=== PATIENT | female | born 1995 | race Caucasian/White ===

== ENCOUNTER 2019-08-17 18:04 | Emergency (ER) | payer MEDICAID, SELFPAY ==
[2019-08-17 18:05] VITALS: BP 107/88; PULSE 112; RESP 17; TEMP 36.1; O2SAT 99; BMI 41.3
--- NOTE | 2019-08-17 18:20 | RAD_ITS ---
STUDY: X-RAY - RIGHT KNEE REASON FOR EXAM: Female, 24 years old. Fall. TECHNIQUE: 4 view(s) of the knee. COMPARISON: None. FINDINGS: Normal visualized distal femur. Normal visualized proximal tibia and fibula. Normal proximal tibiofibular articulation. There is no demonstrated fracture. Normal medial femorotibial compartment. Normal lateral femorotibial compartment. Normal patellofemoral articulation. There is no demonstrated joint effusion. The soft tissue structures are unremarkable. RAD/Knee 4 or More Views IMPRESSION: Normal x-ray examination of the knee. Electronically Signed: Angel Tompkins MD at 18:50 EDT , Service support ,
--- NOTE | 2019-08-17 19:10 | ED.VISSUMM ---
- ER Visit Summary Date of Service: 08/17/19 Chief Complaint: [Fall with injury to right knee] History of Present Illness: The patient is a 24 F [presents to the emergency department stating that she slipped and fell onto her right knee around 1 PM today. Patient having pain with ambulation now. Patient is not sure if she twisted the knee first when she slipped. Patient states she has pain when she tries flexes the knee. Patient denies any other injuries. Patient has no medical history otherwise.] Physical Examination: [Right knee-patient has diffuse tenderness about the medial lateral joint lines. Patient has pain with flexion of the knee. Appears to be ligamentously intact with normal varus and valgus stress. She does not tolerate anterior and posterior drawer test however. She is neurovascular intact distally. Is deformity. No effusion noted.] Test Results: [X-rays of the right knee obtained were normal.] Emergency Department Course and Treatment: [] Patient was given crutches and knee immobilizer Treatment Plan: [Given a prescription for naproxen and referral to orthopedics] Disposition: [Discharged home in stable condition] Impression: [Knee sprain/effusion-possible internal derangement] This note was generated with [employer] dictation software. It may contain incorrect words, spelling, and punctuation that were not noted in review of the chart prior to signing ED Disposition - Plan for ED Patient: Referrals: Larry Anne MD [Primary Care Provider] -
--- NOTE | 2019-08-17 19:12 | ED.DEP ---
ED Disposition - Plan for ED Patient: Instructions: KNEE PAIN, Meniscus Injury (Possible) Prescriptions: Naproxen [Naprosyn] 500 mg PO BID PRN #20 tab Prescription Printed Referrals: Larry Anne MD [Primary Care Provider] - Bipin Correa MD [STAFF PHYSICIAN] - 5-7 Days
[2019-08-17 20:05] VITALS: PULSE 80; RESP 12
== END 2019-08-17 20:07 | disposition home or self-care (01) ==
LOC: ED 18:45
PROVIDERS: Emergency Provider Emergency Medicine; Family Provider Family Medicine; PCP Family Medicine
DX: S83.91XA Sprain of unspecified site of right knee, initial encounter (principal); W01.0XXA Fall on same level from slipping, tripping and stumbling without subsequent striking against object, initial encounter; Y93.9 Activity, unspecified; Y92.9 Unspecified place or not applicable
CPT/HCPCS: 73564; 99284

== ENCOUNTER 2020-10-22 05:55 | Emergency (ER) | payer MEDICAID, SELFPAY ==
[2020-01-27 08:36] VITALS: BMI 41.3
[2020-10-22 05:56] VITALS: BP 150/88; PULSE 96; RESP 18; TEMP 36.3; O2SAT 98; BMI 43.5
--- NOTE | 2020-10-22 06:06 | ED.VIS.GEN ---
History of Present Illness Chief Complaint: Anxiety Informant: Patient Narrative: she restarted Zoloft yesterday evening and believes she is having some side effects. She feels jittery all over. She is having some tingling in her left hand. She had this in the past several months ago with similar symptoms while taking Zoloft and levothyroxine. She was weaned off of each of them and the symptoms resolved. They are back again for the second time after restarting her medication. She wanted to make sure things were okay. Denies any other symptoms. No weakness in the hand. No slurred speech or stroke symptoms otherwise. Past Medical History - Allergies and Home Meds Allergies/Adverse Reactions: Allergies amoxicillin [Amoxicillin] Allergy (Verified 10/22/20 06:02) Swelling Primary Care Physician: Larry Anne MD [Primary Care Provider] - Prior records reviewed: Yes Past Medical History: - - Anxiety Surgical History: - - Reviewed Smoking Status: Never smoker Alcohol: None Drugs: None Review of Systems General: Denies: Chills, Fever, Sweats Eyes: Denies: Visual changes - bilaterally, Diplopia ENT: Denies: Rhinorrhea, Sore throat Cardiovascular: Denies: Chest pain, Palpitations Respiratory: Denies: Dyspnea, Cough, Dyspnea on exertion Gastrointestinal: Denies: Abdominal pain, Nausea, Vomiting, Diarrhea, Melena, Hematochezia Genitourinary: Denies: Dysuria, Hematuria, Frequency Musculoskeletal: Denies: Back pain, Extremity Pain Skin: Denies: Rash, Wounds Neurological: Reports: Numbness - See HPI. Denies: Headache, Weakness Psych: Reports: Anxiety Physical Exam Vital Signs/Narrative: Vital Signs Temp Pulse Resp BP Pulse Ox 10/22/20 05:56 97.4 F L 96 18 150/88 H 98 General: Well nourished, Well developed, No Acute Distress Head: Normocephalic, Atraumatic Eyes: Perrl, EOMI ENT: Moist mucous membranes, No rhinorrhea Neck: Supple, Nontender Cardiovascular: Regular rate, Regular rhythm, No murmurs Respiratory: No distress, CTA bilaterally, Chest nontender Abdomen: Soft, Nontender, Nondistended, Normal bowel sounds Back: Nontender, Normal Inspection Extremities: Nontender, No edema Skin: Normal color, No rash Neurological: Alert, Oriented x3, Cranial nerves II-XII grossly intact, Normal Strength, Normal Sensation Psychological: Normal affect, Normal Mood Diagnostic/Tx/Re-eval - Medical Decision Making Patient has normal sensation left hand. Normal strength. NIH stroke scale 0. She is jittery feeling throughout. I suspect she is having side effect again from her Zoloft which will be the second time. I do not feel she needs work or imaging or has an emergent cause. She will stop this medication follow-up with her family doctor. She does not want a thing for her symptoms and should metabolize the medication ED Disposition - Plan for ED Patient: Disposition: Home or Assisted Living Diagnosis: Medication side effect Instructions: ED Anxiety Reaction Referrals: Larry Anne MD [Primary Care Provider] -
[2020-10-22 06:21] VITALS: BP 150/88; PULSE 96; RESP 16; O2SAT 98
== END 2020-10-22 06:22 | disposition home or self-care (01) ==
LOC: ED 06:13
PROVIDERS: Emergency Provider Emergency Medicine; PCP Family Medicine
DX: R20.2 Paresthesia of skin (principal); T43.225A Adverse effect of selective serotonin reuptake inhibitors, initial encounter; Y92.9 Unspecified place or not applicable; F41.9 Anxiety disorder, unspecified; Z79.899 Other long term (current) drug therapy
CPT/HCPCS: 99282

== ENCOUNTER 2021-02-25 07:27 | Emergency (ER) | payer MEDICAID, SELFPAY ==
[2021-02-25 07:29] VITALS: BP 128/66; PULSE 79; RESP 14; TEMP 36.3; O2SAT 99; BMI 42.9
--- NOTE | 2021-02-25 07:38 | EKG12_ITS ---
Test Reason : Blood Pressure : / mmHG Vent. Rate : 071 BPM Atrial Rate : 071 BPM P-R Int : 144 ms QRS Dur : 084 ms QT Int : 396 ms P-R-T Axes : 034 -05 016 degrees QTc Int : 430 ms Normal sinus rhythm Normal ECG Confirmed by JULIO DUCKWORTH, ALO ([id number]), television news video editor JAY DURHAM ([id number]) on 02/28/2021 9:38:22 AM Referred By: Confirmed By:ANTWON KIM MD
--- NOTE | 2021-02-25 07:39 | ED.VISSUMM ---
- ER Visit Summary Date of Service: 02/25/21 Chief Complaint: Dizziness History of Present Illness: The patient is a 25 F presenting with dizziness. Patient states she woke up this morning and sat up in bed and had a spinning sensation. States when she tried to walk she felt unsteady. She denies lightheadedness or syncope. Denies nausea or vomiting. Denies headache. Denies numbness or weakness. Denies fever or recent illness. She states the symptoms only come on when she changes positions or turns her head. Denies recent trauma. Denies other complaints. Physical Examination: Vitals are stable. Patient is afebrile. Alert no acute distress. HEENT exam is unremarkable. Neck is supple. Lungs are clear and equal bilaterally. Heart is regular rate and rhythm. Abdomen is soft nontender nondistended. Extremities are unremarkable. Skin is warm and dry. No focal neurologic deficit. Normal strength and sensation Remainder of exam is unremarkable. Emergency Department Course and Treatment: Patient was given IV fluids, Valium. CBC, chemistries unremarkable. hCG negative. EKG sinus rhythm rate of 71 with no acute ischemic changes. On reevaluation patient has improvement of her symptoms. She was given prescription for meclizine. Advised to follow-up with her primary care physician. Advised return to the ED for worsening complaints. Disposition: Discharge home Impression: Benign positional vertigo This note was generated with [employer] dictation software. It may contain incorrect words, spelling, and punctuation that were not noted in review of the chart prior to signing ED Disposition - Plan for ED Patient: Instructions: ED BPV Vertigo Prescriptions: Meclizine HCl [Antivert] 25 mg PO TID PRN PRN #20 tablet PRN Reason: Dizziness Prescription Printed Referrals: Larry Anne MD [Primary Care Provider] -
[2021-02-25] MEDS: 0.9% Normal Saline 1,000 ML 1000 ML IV (07:44)
[2021-02-25 08:03] LABS: Absolute Lymphocyte Count 2.07 X10^3/uL (0.83-4.51); Absolute Neutrophil Count 4.2 X10^3/uL (2.0-7.7); Basophil# 0.04 X10^3/uL; Basophil% 0.6 % (0-1); Eosinophil# 0.17 X10^3/uL; Eosinophils% 2.4 % (0-5); Hematocrit 42.8 % (37-47); Hemoglobin 13.7 g/dL (12.0-15.0); Lymphocyte # 2.07 X10^3/ul (0.83-4.51); Lymphocyte % 29.8 % (19-41); Mean Corpuscular Volume 81.4 fL (81-99); Mean Platelet Vol. 9.8 fl (6.2-12.0); Monocyte# 0.44 X10^3/uL; Monocyte% 6.3 % (0-10); NRBC Flagged by Analyzer 0 % (0-5); Neutrophil % 60.6 % (47-70); Platelet Count 324 K/mm3 (150-450); RBC Distribution Width CV 13.9 % (11.6-14.6); RBC Distribution Width SD 40.3 fl (35.1-43.9); Red Blood Count 5.26 M/mm3 (4.2-5.4); White Blood Count 6.9 K/mm3 (4.4-11.0)
[2021-02-25 08:07] LABS: Anion Gap 6 (5-15); BUN 12 mg/dL (7-18); BUN/Creat Ratio 14.4 RATIO (10-20); Calcium,Total 9.4 mg/dL (8.5-10.1); Chloride 111 mmol/L (98-107); Creatinine, Serum 0.83 mg/dL (0.55-1.02); EST Glomerular Filtration Rate 87 mL/min (>60); Est Glom Filt Rate - Afr Amer 105 mL/min (>60); Estimated Creatinine Clearance 99.01 ml/min; Glucose 88 mg/dL (74-106); Potassium 4.3 mmol/L (3.5-5.1); Sodium Level 141 mmol/L (136-145)
[2021-02-25 08:19] LABS: Internal QC Validated? YES +Cl - CLEAR BKGD; Pregnancy, Serum, hCG Quali. NEGATIVE Negative
--- NOTE | 2021-02-25 08:45 | ED.DEP ---
ED Disposition - Plan for ED Patient: Instructions: ED BPV Vertigo Prescriptions: Meclizine HCl [Antivert] 25 mg PO TID PRN PRN #20 tablet PRN Reason: Dizziness Prescription Printed Referrals: Larry Anne MD [Primary Care Provider] -
[2021-02-25 09:07] VITALS: BP 108/79; PULSE 78; RESP 16; O2SAT 98
== END 2021-02-25 09:08 | disposition home or self-care (01) ==
PROVIDERS: Emergency Provider Emergency Medicine; PCP Family Medicine
DX: H81.10 Benign paroxysmal vertigo, unspecified ear (principal)
CPT/HCPCS: 80048; 84703; 85025; 93005; 96360; 99283; J7030; A4216

== ENCOUNTER 2021-02-27 19:34 | Emergency (ER) | payer MEDICAID, SELFPAY ==
[2021-02-27 19:34] VITALS: BP 135/87; PULSE 115; RESP 16; TEMP 36.4; O2SAT 100; BMI 42.7
--- NOTE | 2021-02-27 19:41 | ED.VIS.GEN ---
History of Present Illness Chief Complaint: Lower Extremity Injury Informant: Patient Narrative: 26-year-old female presents with right foot pain. States that she was stepping down out of a house that she was working on when she tripped and fell onto her right foot. States that she denies pain in the foot which she describes as sharp and worse with movement. Denies any numbness or tingling. States that she was seen in urgent care earlier today where they told her that it may or may not be broken. Past Medical History - Allergies and Home Meds Allergies/Adverse Reactions: Allergies amoxicillin [Amoxicillin] Allergy (Verified 10/22/20 06:02) Swelling hydrocodone Adverse Reaction (Verified 02/25/21 07:31) Vomiting Primary Care Physician: Larry Anne MD [Primary Care Provider] - Prior records reviewed: Yes Past Medical History: None Surgical History: no surgical history, - - Reviewed Lives: Spouse/ Significant Other Smoking Status: Never smoker Alcohol: None Drugs: None Review of Systems General: Denies: Chills, Fever, Sweats Eyes: Denies: Visual changes - bilaterally, Diplopia ENT: Denies: Rhinorrhea, Sore throat Cardiovascular: Denies: Chest pain, Palpitations Respiratory: Denies: Dyspnea, Cough, Dyspnea on exertion Gastrointestinal: Denies: Abdominal pain, Nausea, Vomiting, Diarrhea, Melena, Hematochezia Genitourinary: Denies: Dysuria, Hematuria, Frequency Musculoskeletal: Reports: Arthralgias. Denies: Back pain, Extremity Pain Skin: Denies: Rash, Wounds Neurological: Denies: Headache, Weakness, Numbness Physical Exam Vital Signs/Narrative: Vital Signs Temp Pulse Resp BP Pulse Ox 02/27/21 19:34 97.5 F L 115 H 16 135/87 H 100 General: Well nourished, Well developed, No Acute Distress Head: Normocephalic, Atraumatic Eyes: Perrl, EOMI ENT: Moist mucous membranes, No rhinorrhea Neck: Supple, Nontender Cardiovascular: Regular rate, Regular rhythm, No murmurs Respiratory: No distress, CTA bilaterally, Chest nontender Abdomen: Soft, Nontender, Nondistended, Normal bowel sounds Back: Nontender, Normal Inspection Extremities: No edema, - - TTP on the right lateral dorsal foot. No overlying skin changes. Strong and palpable DP and PT pulse. Sensation intact. Skin: Normal color, No rash Neurological: Alert, Oriented x3, Cranial nerves II-XII grossly intact, Normal Strength, Normal Sensation Psychological: Normal affect, Normal Mood Diagnostic/Tx/Re-eval Clinical Impression(s) from Imaging Studies Foot X-Ray 02/27/21 19:44 IMPRESSION: Normal x-ray examination of the foot. Electronically Signed: Ricki Wilson MD at 21:12 EDT , Service support , - Medical Decision Making Patient appears well and nontoxic. X-ray interpreted by myself shows no evidence of acute fracture dislocation. Radiology concurs. Patient received an Hal wrap and advised on rice therapy. Given naproxen for home. Patient given Toradol in the emergency department. Discharged home in stable condition. Impression: 1. Right foot sprain ED Disposition - Plan for ED Patient: Disposition: Home or Assisted Living Instructions: ED Foot Sprain Prescriptions: Naproxen [Naprosyn] 500 mg PO BID #14 tablet Prescription Printed Referrals: Larry Anne MD [Primary Care Provider] - 2 Days
--- NOTE | 2021-02-27 19:44 | RAD_ITS ---
STUDY: X-RAY - RIGHT FOOT CLINICAL: Female, 26 years old. foot pain after fall TECHNIQUE: 3 view(s) of the foot. COMPARISON: None. FINDINGS: Normal talus, calcaneus, and tarsal bones. Normal visualized subtalar, talonavicular, calcaneocuboid, tarsal and tarsometatarsal articulations. Normal metatarsi. Normal metatarsophalangeal joint of the great toe. Normal tibial and fibular sesamoid bones. Normal interphalangeal joint of the great toe. Normal phalanges of the great toe. Normal second through fifth metatarsophalangeal joints. Normal interphalangeal joints and phalanges of the lesser toes. The soft tissue structures are unremarkable. RAD/Foot min 3 Views IMPRESSION: Normal x-ray examination of the foot. Electronically Signed: Ricki Wilson MD at 21:12 EDT , Service support ,
== END 2021-02-27 21:28 | disposition home or self-care (01) ==
PROVIDERS: Emergency Provider Emergency Medicine; PCP Family Medicine
DX: S93.601A Unspecified sprain of right foot, initial encounter (principal); W01.0XXA Fall on same level from slipping, tripping and stumbling without subsequent striking against object, initial encounter; Y93.9 Activity, unspecified; Y92.9 Unspecified place or not applicable
CPT/HCPCS: 73630; 96372; 99282

== ENCOUNTER 2022-09-22 21:27 | Emergency (ER) | payer MEDICAID, SELFPAY ==
[2022-09-22 21:28] VITALS: BP 137/86; PULSE 100; RESP 16; TEMP 35.9; O2SAT 100; BMI 37.5
--- NOTE | 2022-09-22 22:15 | EX.ED.VIS.UR ---
HPI HPI - URI History of Present Illness Chief Complaint: Sore Throat Informant: patient Onset/Context/Timing Onset: Today Context: Gradual Onset Timing: Continuous Quality: Fullness Location: Throat Worsened by: - (Nothing) Relieved by: - (Nothing) Associated Symptoms Associated Symptoms: Positive for Nasal Congestion and Nonproductive cough; Negative for Headache, Sinus Pressure, Myalgias, Nausea, Vomiting, Diarrhea, Shortness of Breath, Chest Pain, Hemoptysis or Productive Cough Narrative Narrative: Patient presents with a sore throat that began today when she woke up. Patient states it is gradually gotten worse throughout the day. Patient states she feels some drainage in her throat. Patient states it feels full at times. Patient states she sometimes has difficulty clearing her throat. Patient denies any shortness of breath however. Patient admits to a slight nonproductive cough. Patient admits to some nasal congestion. Patient states nothing makes her symptoms any better or any worse. Patient denies any nausea or vomiting. Patient denies any chest pain. ROS ROS ED Constitutional Constitutional ED: Denies chills or fever(s) Eyes Eyes: Denies blurry vision or change in vision ENT ENT ED: Reports rhinorrhea and sore throat Cardiovascular Cardiovascular: Denies chest pain or palpitations Respiratory/Chest Respiratory/Chest: Reports cough; Denies dyspnea Gastrointestinal Gastrointestinal: Denies nausea or vomiting Genitourinary Genitourinary ED: Denies dysuria or hematuria Musculoskeletal Musculoskeletal: Denies back pain or neck pain Integumentary Denies abscess or rash Neurologic Neurologic: Denies headache(s) or weakness Allergic/Immunologic Allergic/Immunologic ED: Denies mouth swelling or urticaria [facility] Medical History (Updated 09/22/22 @ 22:[address] Thierno Souza, ) Anxiety Hyperthyroidism Home Medications ergocalciferol (vitamin D2) 1,250 mcg (50,000 unit) capsule (Vitamin D2) 50,000 unit PO Q7D 03/22/17 [History Last Taken Unknown] levothyroxine 25 mcg tablet 25 mcg PO DAILY 02/25/21 [History Last Taken Unknown] naproxen 500 mg tablet 500 mg PO BID #14 tabs 02/27/21 [Rx Last Taken Unknown] Allergy/AdvReac Type Severity Reaction Status Date / Time amoxicillin [Amoxicillin] Allergy Swelling Verified 09/22/22 21:28 hydrocodone AdvReac Vomiting Verified 09/22/22 21:28 Surgical History (Updated 09/22/22 @ 22:[address] Thierno Souza DO) History of tonsillectomy and adenoidectomy Status post ORIF of fracture of ankle Social History Smoking Status: Never smoker EXAM Physical Exam Const Vital Signs: 09/22/22 21:28 Temperature 96.7 F L Temperature Source Temporal Pulse Rate 100 Respiratory Rate 16 Blood Pressure 137/86 H Blood Pressure Mean 103 Pulse Ox 100 Oxygen Delivery Method Room Air Positive well nourished, well developed and obese General Appearance ED: well developed and NAD Nutritional Appearance: obese HEENT Reports moist mucous membranes normocephalic and atraumatic Throat: posterior oropharynx abnormal Positive for cobblestoning and erythema; Negative for edema or exudates Eyes PERRL and EOMs intact bilaterally Neck supple, no meningeal signs and no JVD Resp normal respiratory effort and clear to auscultation bilaterally Cardio regular rate, regular rhythm and no murmurs Extremity normal to inspection and full ROM Neuro oriented x3, CN's II-XII intact bilaterally and no sensory deficits noted Sensorium / Orientation: alert Motor Exam: strength 5/5 throughout Psych mental status grossly normal Skin no rashes or lesions noted MDM MDM MDM Narrative Medical decision making narrative: COVID-19 rapid antigen was obtained. Influenza A and influenza B antigens were obtained. Rapid strep was obtained. Discharge Plan Triage Chief Complaint: Sore Throat ED Provider: Thierno Souza Dx/Rx/DC Orders Prescriptions: No Action ergocalciferol (vitamin D2) [Vitamin D2] 50,000 UNIT capsule 50,000 unit PO Q7D levothyroxine 25 MCG tablet 25 mcg PO DAILY naproxen 500 MG tablet 500 mg PO BID Qty: 14 0RF Primary Care Provider: Larry Anne Referrals: Larry Anne MD [Primary Care Provider] -
== END 2022-09-23 00:22 | disposition home or self-care (01) ==
PROVIDERS: Emergency Provider Emergency Medicine; PCP Internal Medicine; Visit Provider Emergency Medicine
DX: J02.9 Acute pharyngitis, unspecified (principal); E66.9 Obesity, unspecified
CPT/HCPCS: 87428; 87880; 99282